=== PATIENT | female | born 1960 | race Caucasian/White ===

== ENCOUNTER → 2017-07-03 | Outpatient (CLI) | payer BC | END | disposition home or self-care (01) | LOC: LAB EV 10:03 | DX: H60.11 Cellulitis of right external ear (principal) | CPT/HCPCS: 87070; 87205 ==

== ENCOUNTER → 2017-08-12 | Outpatient (CLI) | payer BC | END | disposition home or self-care (01) | LOC: LAB EV 16:22 | DX: H60.11 Cellulitis of right external ear (principal) | CPT/HCPCS: 87070; 87205 ==

== ENCOUNTER → 2020-03-07 | Outpatient (CLI) | payer BC ==
[2020-03-09 15:09] LABS: HPV 16 Negative (Negative); HPV 18 Negative (Negative); HPV OTHER HR TYPES Negative (Negative)
== END | disposition home or self-care (01) ==
LOC: LAB SHORT 19:44 → LAB 19:44
PROVIDERS: Physician Assistant
DX: Z01.419 Encounter for gynecological examination (general) (routine) without abnormal findings (principal)
CPT/HCPCS: 87624; G0145

== ENCOUNTER 2025-01-08 07:18 | Day surgery (SDC) | payer OTHER ==
[~2025-01-08] VITALS: Ht 175.3 cm; Wt 81.1 kg
[~2025-01-08 07:18] MED LIST: Bupivacaine 0.5% W/EPI 1:200000 SDV 30 ML Vial ONE
[2025-01-08] MEDS ORDERED: CeFAZolin Sodium 2,000 MG VIAL ONE (07:33)
[2025-01-08] MEDS ORDERED: METHOTREXATE2.510 PO (07:37)
[2025-01-08] MEDS ORDERED: FentaNYL Citrate 50 MCG/ML 2 ML Injection ONE (07:49)
[2025-01-08] MEDS ORDERED: HYDROmorphone HCl/Pf 1MG SYR ONE (09:28)
--- NOTE | 2025-01-08 10:14 | NUR ---
01/08/25 1014 JuanMoi O2 SATURATIONS 98% ON RA, VSS STABLE. CAP REFILL ON SURGICAL LIMB LESS THAN 3 SECONDS. PT REPORTING MILD NAUSEA RATING AT 3/10. WILL CONTINUE TO MONITOR.
[2025-01-08 10:23] VITALS: BP 148/84
[2025-01-08] MEDS ORDERED: Ondansetron HCl 2 MG / ML 2ML Vial ONE (10:26)
--- NOTE | 2025-01-08 10:32 | NUR ---
01/08/25 1032 Moi Juan ADMINISTERED ZOFRAN 4MG IV FOR NAUSEA PER ANESTHESIA ORDERS
[2025-01-08] MEDS ORDERED: Metoclopramide HCl 5MG / ML 2ML Vial ONE (11:02)
[2025-01-08] MEDS ORDERED: Dexamethasone Sodium Phosphate 4 MG/ML 5ML VIAL ONE (11:43)
== END 2025-01-08 13:08 | disposition home or self-care (01) ==
LOC: ORSCSDS 07:18
PROVIDERS: Podiatrist Foot & Ankle Surgery
PROC: 0SGM04Z Fusion of Right Metatarsal-Phalangeal Joint with Internal Fixation Device, Open Approach (ICD-10-PCS; principal; 2025-01-08 08:45)
PROC: 0QTN0ZZ Resection of Right Metatarsal, Open Approach (ICD-10-PCS; principal; 2025-01-08 08:45)
DX: M06.9 Rheumatoid arthritis, unspecified (principal); M20.21 Hallux rigidus, right foot
CPT/HCPCS: A6253; A9270; C1713; J0690; J1100; J1171; J1790; J2405; J2704; J2765; J3010; J7120